=== PATIENT | female | born 2000 | race African-American/Black ===

== ENCOUNTER 2020-11-26 01:37 | Emergency (ER) | payer OTHER ==
[~2020-11-26] VITALS: Ht 170.2 cm; Wt 86.0 kg
[~2020-11-26 01:37] MED LIST: QUET25TA PO
[2020-11-26 01:49] VITALS: BP 142/68
== END 2020-11-26 04:55 | disposition left against medical advice (07) ==
LOC: ER 01:37
DX: Z53.21 Procedure and treatment not carried out due to patient leaving prior to being seen by health care provider (principal); J45.909 Unspecified asthma, uncomplicated

== ENCOUNTER 2021-01-14 17:00 | Emergency (ER) | payer OTHER ==
[~2021-01-14] VITALS: Ht 170.2 cm; Wt 98.0 kg
[2021-01-14 17:48] VITALS: BP 122/61
== END 2021-01-14 19:26 | disposition left against medical advice (07) ==
LOC: ER 17:00
DX: Z53.21 Procedure and treatment not carried out due to patient leaving prior to being seen by health care provider (principal)

== ENCOUNTER 2021-07-11 13:01 | Emergency (ER) | payer OTHER ==
[~2021-07-11] VITALS: Ht 170.2 cm; Wt 73.0 kg
[2021-07-11 13:09] VITALS: BP 132/71
== END 2021-07-11 18:50 | disposition left against medical advice (07) ==
LOC: ER 13:01
DX: J45.901 Unspecified asthma with (acute) exacerbation (principal); H04.203 Unspecified epiphora, bilateral; M54.9 Dorsalgia, unspecified
CPT/HCPCS: 93005; 99281; 99283

== ENCOUNTER 2021-08-05 12:11 | Emergency (ER) | payer OTHER ==
[~2021-08-05] VITALS: Ht 165.1 cm; Wt 75.0 kg
[2021-08-05 12:41] VITALS: BP 135/67
[2021-08-05 13:30] LABS: BASOPHILS % 0.4 % (0.0-2.0); EOSINOPHILS % 0.9 % (0.0-5.0); HEMATOCRIT. 42.2 % (36.0-48.0); HEMOGLOBIN. 13.9 g/dL (12.0-16.0); MEAN CORPUSCULAR HEMOGLOBIN 26.1 pg (28.0-32.0); MEAN CORPUSCULAR VOLUME 79.1 fL (81.0-99.0); MEAN PLATELET VOLUME 7.8 fl (7.4-10.4); MONOCYTES % 7.8 % (2.0-8.0); NEUTROPHILS % 70.9 % (40.0-76.0); PLATELET 270 x1000/uL (130-400); RED BLOOD CELL COUNT 5.33 mill/uL (4.2-5.4); RED CELL DISTRIBUTION WIDTH 15.4 % (11.6-14.6)
[2021-08-05 13:38] LABS: CHLORIDE 104 mEq/L (98-107)
[2021-08-05 15:16] LABS: CLARITY URINE CLEAR (CLEAR); COLOR URINE YELLOW (YELLOW); KETONES URINE NEGATIVE (NEGATIVE); LEUKOCYTE ESTERASE URINE NEGATIVE (NEGATIVE); NITRITE URINE NEGATIVE (NEGATIVE); OCCULT BLOOD URINE NEGATIVE (NEGATIVE); PROTEIN URINE NEGATIVE (NEGATIVE); SPECIFIC GRAVITY URINE 1.023 (1.005-1.030); UROBILINOGEN URINE 0.2 E.U./dL (0.2-1.0)
[2021-08-05] MEDS ORDERED: CYCL10TA7 MT (15:43)
[2021-08-05] MEDS ORDERED: ONDANSETRON 4MG ODT PO ONE (15:45)
[2021-08-05] MEDS ORDERED: BENZONATATE 100MG CAPSULE PO ONE (15:45)
[2021-08-05] MEDS ORDERED: ONDA4TAB5 MT (16:04)
== END 2021-08-05 16:08 | disposition home or self-care (01) ==
LOC: ER 12:11
DX: S13.8XXA Sprain of joints and ligaments of other parts of neck, initial encounter (principal); R11.2 Nausea with vomiting, unspecified; R05.9 Cough, unspecified; D72.829 Elevated white blood cell count, unspecified; J45.909 Unspecified asthma, uncomplicated; F41.9 Anxiety disorder, unspecified; X58.XXXA Exposure to other specified factors, initial encounter; Y93.89 Activity, other specified; Y92.89 Other specified places as the place of occurrence of the external cause
CPT/HCPCS: 36415; 80048; 81003; 85025; 99283; Q0162

== ENCOUNTER 2021-09-07 09:04 | Emergency (ER) | payer OTHER ==
[~2021-09-07] VITALS: Ht 157.5 cm; Wt 70.0 kg
[~2021-09-07 09:04] MED LIST changes: +CYCL10TA7 MT; +ONDA4TAB5 MT
[2021-09-07 09:14] VITALS: BP 127/77
[2021-09-07] MEDS ORDERED: KETOROLAC 30MG/ML VIAL IM ONE (13:15)
[2021-09-07] MEDS ORDERED: CYCL10TA7 MT (13:28)
== END 2021-09-07 13:36 | disposition home or self-care (01) ==
LOC: ER 09:35
DX: S13.8XXA Sprain of joints and ligaments of other parts of neck, initial encounter (principal); M54.9 Dorsalgia, unspecified; V47.5XXA Car driver injured in collision with fixed or stationary object in traffic accident, initial encounter; Y93.89 Activity, other specified; Y92.488 Other paved roadways as the place of occurrence of the external cause
CPT/HCPCS: 96372; 99283; J1885

== ENCOUNTER 2022-01-24 10:14 | Emergency (ER) | payer OTHER ==
[~2022-01-24] VITALS: Ht 167.6 cm; Wt 68.0 kg
[~2022-01-24 10:14] MED LIST changes: +CYCL10TA21 MT; -CYCL10TA7 MT
[2022-01-24 10:16] VITALS: BP 130/76
[2022-01-24] MEDS ORDERED: ACETAMINOPHEN 325MG TABLET PO ONE (10:45)
== END 2022-01-24 11:23 | disposition left against medical advice (07) ==
LOC: ER 10:23
DX: S91.312A Laceration without foreign body, left foot, initial encounter (principal); S09.8XXA Other specified injuries of head, initial encounter; Y08.89XA Assault by other specified means, initial encounter; Y93.89 Activity, other specified; Y92.89 Other specified places as the place of occurrence of the external cause; Y99.8 Other external cause status; F41.9 Anxiety disorder, unspecified; J45.909 Unspecified asthma, uncomplicated; Z79.899 Other long term (current) drug therapy
CPT/HCPCS: 36415; 84702; 99283

== ENCOUNTER 2023-09-04 21:06 | Emergency (ER) | payer OTHER ==
[~2023-09-04] VITALS: Ht 170.2 cm; Wt 84.8 kg
[2023-09-04 21:18] VITALS: TEMP 98.6
[2023-09-04] MEDS: PREDNISONE 20MG TABLET PO STA (22:25)
[2023-09-04] MEDS: GUAIFENESIN-DM 200MG-20MG/10ML UDC PO ONE (22:30)
[2023-09-04] MEDS: ALBUTEROL (0.083%) 2.5MG/3ML NEB HHN STA (22:44)
[2023-09-04 22:45] VITALS: PULSE 83; RESP 20; O2SAT 98
[2023-09-04] MEDS: IPRATROPIUM BROMIDE (0.02%) 0.5MG/2.5ML NEB HHN STA (22:45)
[2023-09-04] MEDS: BENZONATATE 200MG CAPSULE PO ONE (23:30)
[2023-09-04] MEDS ORDERED: P20 MT (23:57)
[2023-09-04] MEDS ORDERED: TUSSL MT (23:57)
[2023-09-04] MEDS ORDERED: BENZ100C86 MT (23:57)
[2023-09-04] MEDS ORDERED: ALBU4TAB6 MT (23:57)
[2023-09-05 00:09] VITALS: BP 146/89; PULSE 98; RESP 18
== END 2023-09-05 00:30 | disposition home or self-care (01) ==
LOC: ER 21:06
DX: J45.901 Unspecified asthma with (acute) exacerbation (principal); F41.9 Anxiety disorder, unspecified; J45.909 Unspecified asthma, uncomplicated; Z79.899 Other long term (current) drug therapy
CPT/HCPCS: 71045; 93005; 94644; 99285; J7512; Z7610 ×3